=== PATIENT | male | born 1995 | race Caucasian/White ===

== ENCOUNTER 2016-12-03 19:46 | Emergency (ER) | payer OTHER ==
[~2016-12-03] VITALS: Ht 175.3 cm; Wt 79.2 kg
[2016-12-03 19:51] VITALS: BP 131/69
[2016-12-03] MEDS ORDERED: DEXAMETHASONE 4 MG TABLET PO ONE (20:30)
[2016-12-03] MEDS ORDERED: DEXAMETHASONE 4 MG TABLET ONE (20:31)
== END 2016-12-03 21:35 | disposition home or self-care (01) ==
LOC: ED 21:00
DX: J03.80 Acute tonsillitis due to other specified organisms (principal); B97.89 Other viral agents as the cause of diseases classified elsewhere
CPT/HCPCS: 87081; 87147; 87880; 99284

== ENCOUNTER 2017-11-13 14:33 | Emergency (ER) | payer OTHER ==
[~2017-11-13] VITALS: Ht 175.3 cm; Wt 76.3 kg
[2017-11-13 14:44] VITALS: BP 170/61
[2017-11-13] MEDS ORDERED: DEXAMETHASONE 4 MG TABLET PO ONE (15:00)
[2017-11-13] MEDS ORDERED: DEXAMETHASONE 4 MG TABLET ONE (15:10)
== END 2017-11-13 15:35 | disposition home or self-care (01) ==
LOC: ED 15:30
DX: J03.91 Acute recurrent tonsillitis, unspecified (principal)
CPT/HCPCS: 87081; 87880; 99284

== ENCOUNTER 2017-11-30 21:00 | Inpatient (IN) | payer OTHER ==
[~2017-11-30] VITALS: Ht 175.3 cm; Wt 74.0 kg
[2017-11-30] MEDS ORDERED: SODIUM CHLORIDE FLUSH 10ML SYR IVF ONE (22:30)
[2017-11-30] MEDS ORDERED: BENZOCAINE 20% SPRAY 0.5ML ONE ×2 (23:17)
[2017-11-30] MEDS ORDERED: LIDOCAINE-MPF 1%, 5ML ONE (23:19)
[2017-11-30] MEDS ORDERED: MORPHINE SULFATE 4 MG/ML, 1ML IVPush PRN (23:30)
[2017-11-30] MEDS ORDERED: LIDOCAINE-MPF 1%, 5ML INFIL ONE (23:30)
[2017-11-30] MEDS ORDERED: BENZOCAINE 20% SPRAY 0.5ML TP ONE (23:30)
[2017-11-30] MEDS ORDERED: ONDANSETRON ODT 4 MG PO ONE (23:30)
[2017-12-01] MEDS ORDERED: AMPICILLIN/SULBACTAM 3 GM in SODIUM CHLORIDE 0.9% 100 ML IV ONE (00:30)
[2017-12-01] MEDS ORDERED: OMNIPAQUE 350 MG/ML, 100ML BOTTLE ONE (00:35)
[2017-12-01 01:00] VITALS: BP 151/63
[2017-12-01] MEDS ORDERED: BENZOCAINE AEROSOL SPRAY 20%, 60ML TP PRN ×2 (03:00→05:00)
[2017-12-01] MEDS ORDERED: ONDANSETRON 2MG/ML, 2ML IVPush PRN (05:00)
[2017-12-01] MEDS ORDERED: ACETAMINOPHEN 650 MG/20.3 ML UDC PO PRN (05:00)
[2017-12-01] MEDS ORDERED: morphine SULFATE 10 MG/ML, 1ML IVPush PRN (05:00)
[2017-12-01 05:50] LABS: BASOPHILS % (AUTO) 1 % (0-1); EOSINOPHILS # (AUTO) 0.03 x10^3/uL (0-0.4); EOSINOPHILS % (AUTO) 0 % (1-7); LYMPHOCYTES # (AUTO) 0.93 x10^3/uL (1-3.4); LYMPHOCYTES % (AUTO) 7 % (22-44); MD NO; MEAN CORPUSCULAR HEMOGLOBIN 30.9 pg (27.5-34.5); MEAN CORPUSCULAR HGB CONC 34.6 g/dL (33.2-36.2); MEAN CORPUSCULAR VOLUME 89.4 fL (81-97); MEAN PLATELET VOLUME 7.6 fL (7.4-10.4); MONOCYTES % (AUTO) 7 % (2-9); NEUTROPHILS # (AUTO) 12.17 x10^3/uL (1.8-6.8); NEUTROPHILS % (AUTO) 86 % (42-75); PLATELET COUNT 233 x10^3/uL (130-400); RED BLOOD COUNT 4.75 x10^6/uL (4.38-5.82); RED CELL DISTRIBUTION WIDTH 13.6 % (9.4-14.8)
[2017-12-01 06:01] LABS: ANION GAP 9 mmol/L (5-15); CALCIUM 8.9 mg/dL (8.5-10.1); CHLORIDE 105 mmol/L (98-107)
[2017-12-01] MEDS: D5%-0.9% NACL 1,000 ML IV SCH ×2 (06:01→11:59)
[2017-12-01 06:02] LABS: CREATININE 1.12 mg/dL (0.7-1.3)
[2017-12-01] MEDS: AMPICILLIN/SULBACTAM 3 GM in SODIUM CHLORIDE 0.9% 100 ML IV SCH ×2 (06:39→13:26)
[2017-12-01 07:34] VITALS: BP 150/77
[2017-12-01] MEDS ORDERED: LIDOCAINE 0.5%-EPI 1:200K, 50ML INFIL ONE (12:30)
[2017-12-01 14:00] VITALS: BP 127/73
[2017-12-01] MEDS ORDERED: AMOX1TAB64 PO (17:11)
== END 2017-12-01 16:20 | disposition home or self-care (01) | DRG 153 ==
LOC: ED 22:05 → EDIP 12-01 00:16 → 4NOR 12-01 00:48 → DCLOUNGE 12-01 16:05
PROVIDERS: ADMIT Hospitalist; ATTEND Hospitalist
PROC: 0CJYXZZ Inspection of Mouth and Throat, External Approach (ICD-10-PCS; 2017-11-30)
PROC: 0C9P3ZZ Drainage of Tonsils, Percutaneous Approach (ICD-10-PCS; principal; 2017-12-01)
DX: J36 Peritonsillar abscess (principal)
CPT/HCPCS: 36415; 42700; 70491; 80048; 85025; 86308; 87070; 87205; 99285; J0295; J7042; Q9967; J2270

== ENCOUNTER 2019-05-23 11:56 | Emergency (ER) | payer OTHER ==
[~2019-05-23] VITALS: Ht 175.3 cm; Wt 75.0 kg
[~2019-05-23 11:56] MED LIST: AMOX1TAB64 PO
[2019-05-23 11:59] VITALS: BP 143/63
--- NOTE | 2019-05-23 12:14 | NUR ---
TASK RN: THIS IS A 24 YO MALE WHO PRESENTS TO THE ER REFERRED FROM FOR R/O TESTICULAR TORSION. PT C/O WORSENING LEFT TESTICLE PAIN THIS MORNING. PT HAS HX OF TORSION AT AGE 8 W/O HX OF SURGERY. PT AO X 4. SKIN PWD. RESP EVEN AND UNLABORED. IV ACCESS ESTABLISHED. [employer] BUTCHER HAS BEEN TO BEDSIDE FOR EVAL. LAST TIME EATING OR DRINKING WAS EGGS AND TOAST AT APPROX 0900 THIS AM. REPORT TO PRIMARY RN SOCRATES WHO ASSUMED CARE OF PT.
[2019-05-23 12:18] LABS: BASOPHILS # (AUTO) 0.02 x10^3/uL (0-0.1); BASOPHILS % (AUTO) 0 % (0-1); EOSINOPHILS # (AUTO) 0.03 x10^3/uL (0-0.4); EOSINOPHILS % (AUTO) 0 % (1-7); LYMPHOCYTES # (AUTO) 2.25 x10^3/uL (1-3.4); LYMPHOCYTES % (AUTO) 36 % (22-44); MD NO; MEAN CORPUSCULAR HEMOGLOBIN 30.5 pg (27.5-34.5); MEAN CORPUSCULAR HGB CONC 33.8 g/dL (33.2-36.2); MEAN CORPUSCULAR VOLUME 90.4 fL (81-97); MONOCYTES # (AUTO) 0.45 x10^3/uL (0.2-0.8); MONOCYTES % (AUTO) 7 % (2-9); NEUTROPHILS # (AUTO) 3.55 x10^3/uL (1.8-6.8); NEUTROPHILS % (AUTO) 56 % (42-75); PLATELET COUNT 282 x10^3/uL (130-400); RED CELL DISTRIBUTION WIDTH 13.2 % (9.4-14.8)
[2019-05-23 12:28] LABS: ALBUMIN 4.9 g/dL (3.4-5.0); ANION GAP 4 mmol/L (5-15); CALCIUM 9.5 mg/dL (8.5-10.1); CHLORIDE 106 mmol/L (98-107); CREATININE 0.94 mg/dL (0.7-1.3)
--- NOTE | 2019-05-23 12:31 | NUR ---
OFF FLOOR TO ULTRASOUND
--- NOTE | 2019-05-23 13:03 | NUR ---
UOB TO GIVE URINE SAMPLE
[2019-05-23 13:49] LABS: MICROSCOPIC NOT IND
[2019-05-23 13:53] LABS: CULTURE INDICATED? NO
--- NOTE | 2019-05-23 13:55 | NUR ---
PT VISITING WITH FRIEND. NO DISTRESS.
== END 2019-05-23 14:36 | disposition home or self-care (01) ==
LOC: ED 14:00
DX: I86.1 Scrotal varices (principal); N50.812 Left testicular pain
CPT/HCPCS: 36415; 76870; 80048; 81003; 82040; 85025; 99284

== ENCOUNTER 2019-07-11 22:13 | Emergency (ER) | payer OTHER ==
[~2019-07-11] VITALS: Ht 175.3 cm; Wt 76.8 kg
[2019-07-11] MEDS ORDERED: ONDANSETRON ODT 8 MG PO ONE (22:30)
[2019-07-11 22:56] LABS: BASOPHILS # (AUTO) 0.01 x10^3/uL (0-0.1); BASOPHILS % (AUTO) 0 % (0-1); EOSINOPHILS # (AUTO) 0.03 x10^3/uL (0-0.4); EOSINOPHILS % (AUTO) 0 % (1-7); LYMPHOCYTES # (AUTO) 0.41 x10^3/uL (1-3.4); LYMPHOCYTES % (AUTO) 5 % (22-44); MD NO; MEAN CORPUSCULAR HEMOGLOBIN 30.5 pg (27.5-34.5); MEAN CORPUSCULAR HGB CONC 33.9 g/dL (33.2-36.2); MEAN CORPUSCULAR VOLUME 89.9 fL (81-97); MEAN PLATELET VOLUME 7.7 fL (7.4-10.4); MONOCYTES # (AUTO) 0.27 x10^3/uL (0.2-0.8); MONOCYTES % (AUTO) 3 % (2-9); NEUTROPHILS # (AUTO) 8.12 x10^3/uL (1.8-6.8); NEUTROPHILS % (AUTO) 92 % (42-75); PLATELET COUNT 241 x10^3/uL (130-400); RED BLOOD COUNT 5.75 x10^6/uL (4.38-5.82); RED CELL DISTRIBUTION WIDTH 12.5 % (9.4-14.8)
[2019-07-11] MEDS ORDERED: ONDANSETRON ODT 4 MG ONE (22:56)
[2019-07-11 23:08] LABS: ALANINE AMINOTRANSFERASE 30 U/L (12-78); ALBUMIN 4.5 g/dL (3.4-5.0); ANION GAP 9 mmol/L (5-15); CALCIUM 9.6 mg/dL (8.5-10.1); CHLORIDE 107 mmol/L (98-107); CREATININE 1.11 mg/dL (0.7-1.3)
--- NOTE | 2019-07-11 23:08 | NUR ---
pt to ed from home accomp by gf. n/v/d x5 hours. no blood in stool/vomit. diarrhea x4 times, liquid. vomiting food. c/o chills. vss. no pain on palp, denies abd pain but c/o some discomfort. zofran per sep. labs pending. call [facility] in reach. report to keegan lewis.
[2019-07-11 23:10] LABS: ALKALINE PHOSPHATASE 55 U/L (45-117); BILIRUBIN,TOTAL 1.2 mg/dL (0.2-1.0); TOTAL PROTEIN 8.2 g/dL (6.4-8.2)
[2019-07-11] MEDS ORDERED: PROMETHAZINE 25 MG/ML, 1ML ONE (23:33)
[2019-07-12] MEDS ORDERED: PROMETHAZINE 25 MG/ML, 1ML IM ONE
[2019-07-12] MEDS ORDERED: SODIUM CHLORIDE 0.9% 1,000ML IVBOLUS ONE (00:30)
--- NOTE | 2019-07-12 00:38 | NUR ---
BREAK RN: PT FAILED PO CHALLANGE, STATED HE COULD KEEP WATER DOWN FOR A LITTLE WHILE, THEN HE THREW IT UP. ERP AWARE, IV FLUIDS ORDERED.
[2019-07-12] MEDS ORDERED: KETOROLAC 30 MG/1 ML IVPush ONE (01:30)
[2019-07-12] MEDS ORDERED: KETOROLAC 30 MG/1 ML ONE (01:59)
[2019-07-12 02:08] VITALS: BP 132/77
--- NOTE | 2019-07-12 02:09 | NUR ---
pt refused tordol medication and just wanted to leave [facility].
== END 2019-07-12 02:11 | disposition home or self-care (01) ==
LOC: ED 22:49
DX: R10.13 Epigastric pain (principal); R11.2 Nausea with vomiting, unspecified; R19.7 Diarrhea, unspecified; R10.33 Periumbilical pain
CPT/HCPCS: 36415; 80053; 83690; 85025; 96360; 96361; 96372; 99283; J2550; J7030; Q0162